=== PATIENT | female | born 1960 | race Caucasian/White ===

== ENCOUNTER 2019-05-31 18:21 | Emergency (ER) | payer OTHER ==
[~2019-05-31] VITALS: Ht 165.1 cm; Wt 78.9 kg
[~2019-05-31 18:21] MED LIST: AMBIEN CR12.5 MG/BL PO; CLIDINIUM W-CDP1 CAP PO; GASTRINEX CAPSU1 CAP PO; LEVSIN0.125 MG PO; NEXIUM40 MG/PACK PO; XANAX0.25 MG PO
== END 2019-05-31 23:19 | disposition home or self-care (01) ==
LOC: ER 18:21
DX: N39.0 Urinary tract infection, site not specified (principal); R31.0 Gross hematuria